=== PATIENT | male | born 1950 | race Hispanic/Latino ===

== ENCOUNTER → 2017-11-07 | Outpatient (CLI) | payer OTHER | END | disposition home or self-care (01) | LOC: RAH 08:20 | PROVIDERS: ATTEND Family Medicine | DX: R19.00 Intra-abdominal and pelvic swelling, mass and lump, unspecified site (principal) | CPT/HCPCS: 76705 ==

== ENCOUNTER → 2019-07-07 | Outpatient (CLI) | payer OTHER | END | disposition home or self-care (01) | LOC: OIH 15:03 | PROVIDERS: ATTEND Family Medicine | DX: M16.0 Bilateral primary osteoarthritis of hip (principal); M47.816 Spondylosis without myelopathy or radiculopathy, lumbar region; M17.11 Unilateral primary osteoarthritis, right knee | CPT/HCPCS: 72100; 73521; 73562 ==

== ENCOUNTER → 2019-07-30 | Outpatient (CLI) | payer OTHER | END | disposition home or self-care (01) | LOC: RAH 14:16 | PROVIDERS: ATTEND Family Medicine | DX: N20.9 Urinary calculus, unspecified (principal); N28.1 Cyst of kidney, acquired | CPT/HCPCS: 76770; 76856 ==

== ENCOUNTER → 2025-07-26 | Outpatient (CLI) | payer OTHER ==
[2025-07-26 22:25] VITALS: PULSE 62; RESP 12
[2025-07-26 23:00] VITALS: PULSE 64; RESP 14
[2025-07-26 23:35] VITALS: PULSE 59; RESP 12
[2025-07-27] VITALS (11 sets, daily range): PULSE 52–96; RESP 12
== END | disposition home or self-care (01) ==
LOC: SLP 20:15
PROVIDERS: ATTEND Family Medicine
DX: G47.33 Obstructive sleep apnea (adult) (pediatric) (principal); R06.83 Snoring; R53.83 Other fatigue
CPT/HCPCS: 95810

== ENCOUNTER → 2025-08-22 | Outpatient (CLI) | payer OTHER ==
[2025-08-22] VITALS (7 sets, daily range): PULSE 40–85; RESP 7–17
[2025-08-23] VITALS (10 sets, daily range): PULSE 59–87; RESP 11–21
== END | disposition home or self-care (01) ==
LOC: SLP 19:58
PROVIDERS: ATTEND Family Medicine
DX: G47.33 Obstructive sleep apnea (adult) (pediatric) (principal); R40.0 Somnolence; R06.83 Snoring
CPT/HCPCS: 95811